=== PATIENT | male | born 1940 | race Caucasian/White ===

== ENCOUNTER 2016-12-07 15:17 | Observation (INO) | payer MEDICARE, OTHER ==
[2016-12-07] MEDS ORDERED: ASPIRIN CHEW 81 MG TABLET PO STA (15:34)
[2016-12-07] MEDS ORDERED: ASPIRIN CHEW 81 MG TABLET ONE (15:53)
[2016-12-07] MEDS ORDERED: SODIUM CHLORIDE 0.9% 1,000 ML IV ONE (16:13)
[2016-12-07] MEDS ORDERED: LIDOCAINE VISCOUS 2% 15 ML UDC MM STA (16:52)
[2016-12-07] MEDS ORDERED: SUCRALFATE 1 GM/10 ML UDC PO STA (16:52)
[2016-12-07] MEDS ORDERED: MAG HYDROX/AL HYDROX/SIMETH 30 ML UDC PO STA (16:52)
[2016-12-07] MEDS ORDERED: MAG HYDROX/AL HYDROX/SIMETH 30 ML UDC ONE (16:56)
[2016-12-07] MEDS ORDERED: SUCRALFATE 1 GM/10 ML UDC ONE (16:56)
[2016-12-07] MEDS ORDERED: LIDOCAINE VISCOUS 2% 15 ML UDC MM ONE (16:56)
[2016-12-07] MEDS ORDERED: GI COCKTAIL 120 ML BOTTLE PO PRN (18:31)
[2016-12-07] MEDS ORDERED: MORPHINE 2 MG/ML SYRINGE IVP PRN (18:35)
[2016-12-07] MEDS ORDERED: ACETAMINOPHEN 325 MG TABLET PO PRN (18:35)
[2016-12-07] MEDS ORDERED: SODIUM CHLORIDE FLUSH 0.9% 10 ML SYRINGE IVP PRN (18:35)
[2016-12-07] MEDS ORDERED: ONDANSETRON 4 MG/2 ML VIAL IVP PRN (18:35)
[2016-12-07] MEDS ORDERED: PANTOPRAZOLE 40 MG TABLET PO SCH (19:00)
[2016-12-07] MEDS: SODIUM CHLORIDE FLUSH 0.9% 10 ML SYRINGE IVP SCH (20:49)
[2016-12-07] MEDS: PANTOPRAZOLE 40 MG TABLET PO SCH (20:49)
[2016-12-07] MEDS: SODIUM CHLORIDE 0.9% 1,000 ML IV SCH (20:49)
[2016-12-08] MEDS: SODIUM CHLORIDE 0.9% 1,000 ML IV SCH (06:32)
[2016-12-08] MEDS: PANTOPRAZOLE 40 MG TABLET PO SCH (06:32)
[2016-12-08] MEDS: SODIUM CHLORIDE FLUSH 0.9% 10 ML SYRINGE IVP SCH (06:33)
[2016-12-08] MEDS ORDERED: PANTOPRAZOLE 40 MG TABLET PO SCH (07:00)
[2016-12-08] MEDS ORDERED: MULTIVITAMIN TABLET PO SCH (08:00)
[2016-12-08] MEDS ORDERED: ASPIRIN EC 81 MG TABLET PO SCH (09:00)
[2016-12-08] MEDS ORDERED: POLYETHYLENE GLYCOL 3350 17 GM PACKET PO SCH (09:00)
[2016-12-08] MEDS ORDERED: ESCITALOPRAM 10 MG TABLET PO SCH (09:00)
[2016-12-08] MEDS ORDERED: FINASTERIDE 5 MG TABLET PO SCH (09:00)
[2016-12-08] MEDS ORDERED: LISINOPRIL 5 MG TABLET PO SCH (09:00)
[2016-12-08] MEDS ORDERED: TAMSULOSIN 0.4 MG CAPSULE PO SCH (17:00)
== END 2016-12-08 13:59 | disposition home or self-care (01) ==
PROC: 0DB38ZX Excision of Lower Esophagus, Via Natural or Artificial Opening Endoscopic, Diagnostic (ICD-10-PCS; principal; 2016-12-08)
DX: K22.70 Barrett's esophagus without dysplasia (principal); K20.9 Esophagitis, unspecified; K21.9 Gastro-esophageal reflux disease without esophagitis; F10.20 Alcohol dependence, uncomplicated; E66.9 Obesity, unspecified; Z68.30 Body mass index [BMI] 30.0-30.9, adult; K44.9 Diaphragmatic hernia without obstruction or gangrene; D64.9 Anemia, unspecified; I15.9 Secondary hypertension, unspecified; N40.0 Benign prostatic hyperplasia without lower urinary tract symptoms; R06.83 Snoring; Z79.82 Long term (current) use of aspirin; Z87.891 Personal history of nicotine dependence
CPT/HCPCS: 36415; 43239; 71010; 80053; 80061; 81001; 83690; 83735; 83874; 84100; 84484; 85025; 93005; 93010; 93306; 99284; 99285; A9270; G0378

== ENCOUNTER 2017-01-15 07:34 | Outpatient (CLI) | payer MEDICARE, OTHER | END 2017-01-15 07:35 | disposition home or self-care (01) | DX: E55.9 Vitamin D deficiency, unspecified (principal) ==

== ENCOUNTER 2017-11-21 08:00 | Outpatient (CLI) | payer MEDICARE, OTHER ==
[2017-11-21 12:59] LABS: PSA FREE 0.74 ng/mL (0.16-2.81)
[2017-11-21 13:00] LABS: PSA TOTAL 3.97 ng/mL (0.000-2.000)
[2017-11-21 13:01] LABS: BASOPHILS # (AUTO) 0.2 10^3/uL (0.0-0.1); BASOPHILS % (AUTO) 1.5 %; EOSINOPHILS # (AUTO) 0.2 10^3/uL (0.0-0.7); EOSINOPHILS % (AUTO) 1.5 %; HGB - HEMOGLOBIN 12.4 g/dL (14.0-18.0); LYMPHOCYTES # (AUTO) 1.5 10^3/uL (1.5-3.5); LYMPHOCYTES % (AUTO) 12.6 %; MEAN CORPUSCULAR HEMOGLOBIN 30.6 pg (27.0-31.0); MEAN CORPUSCULAR HGB CONC 31.7 g/dL (32.0-36.0); MEAN CORPUSCULAR VOLUME 96.6 fL (80.0-94.0); MEAN PLATELET VOLUME 9.3 fL (7.4-11.4); MONOCYTES # (AUTO) 0.9 10^3/uL (0.0-1.0); MONOCYTES % (AUTO) 7.8 %; NEUTROPHILS # (AUTO) 9.3 10^3/uL (1.5-6.6); NEUTROPHILS % (AUTO) 76.6 %; PLT - PLATELET COUNT 354 10^3/uL (130-450); RED BLOOD COUNT 4.05 10^6/uL (4.70-6.10); RED CELL DISTRIBUTION WIDTH 14.4 % (12.0-15.0); WHITE BLOOD COUNT 12.1 x10^3/uL (4.8-10.8)
[2017-11-21 13:11] LABS: ALBUMIN 4.2 g/dL (3.2-5.5); ALBUMIN/GLOBULIN RATIO 1.3 (1.0-2.2); ALKALINE PHOSPHATASE 37 IU/L (42-121); ALT ALANINE AMINOTRANSFERASE 14 IU/L (10-60); AST ASPARTATE AMINOTRANSFERASE 20 IU/L (10-42); BILIRUBIN,TOTAL 0.4 mg/dL (0.2-1.0); BUN - BLOOD UREA NITROGEN 19 mg/dL (6-20); CALCIUM 8.7 mg/dL (8.5-10.3); CARBON DIOXIDE - CO2 25 mmol/L (21-32); CHLORIDE 104 mmol/L (101-111); CHOL/HDL RATIO 2.7 (<5.0); CHOLESTEROL 183 mg/dL; GFR - MDRD 73 (>89); GLUCOSE 96 mg/dL (70-100); HDL CHOLESTEROL 67 mg/dL; LDL CHOLESTEROL,CALCULATED 95 mg/dL; LDL/HDL RATIO 1.4 (<3.6); SODIUM 134 mmol/L (135-145); TOTAL PROTEIN 7.4 g/dL (6.7-8.2); VLDL CHOLESTEROL 21 mg/dL
== END 2017-11-21 08:01 | disposition home or self-care (01) ==
LOC: LAB.WCP 08:00
PROVIDERS: ATTEND Family Medicine
DX: Z13.220 Encounter for screening for lipoid disorders (principal); I10 Essential (primary) hypertension; E55.9 Vitamin D deficiency, unspecified; R97.20 Elevated prostate specific antigen [PSA]; K62.5 Hemorrhage of anus and rectum
CPT/HCPCS: 36415; 80053; 80061; 82306; 83721; 84154; 85025

== ENCOUNTER 2018-03-11 11:10 | Day surgery (SDC) | payer MEDICARE, OTHER ==
[~2018-03-11 11:10] MED LIST: LIDO GARGLE 30 ML BOTTLE ONE
[2018-03-11] MEDS ORDERED: LACTATED RINGERS 1,000 ML IV ONE (11:16)
[2018-03-11] MEDS ORDERED: MIDAZOLAM 2 MG/2 ML VIAL IVP ONE (11:47)
[2018-03-11] MEDS ORDERED: fentaNYL 250 MCG/5 ML VIAL IVP ONE (11:47)
[2018-03-11] MEDS ORDERED: BENZOCAINE/TETRACAINE/BUTAMBEN SPRAY 56 GM TOP ONE (12:00)
[2018-03-11] MEDS ORDERED: LIDO GARGLE 30 ML BOTTLE PO ONE (12:00)
[2018-03-11 13:19] VITALS: BP 106/86
== END 2018-03-11 11:11 | disposition home or self-care (01) ==
LOC: SDS 11:10
PROVIDERS: ATTEND Surgery
PROC: 0DB58ZX Excision of Esophagus, Via Natural or Artificial Opening Endoscopic, Diagnostic (ICD-10-PCS; principal; 2018-03-11 12:15)
DX: K22.70 Barrett's esophagus without dysplasia (principal); K44.9 Diaphragmatic hernia without obstruction or gangrene; I10 Essential (primary) hypertension; K21.9 Gastro-esophageal reflux disease without esophagitis; Z87.891 Personal history of nicotine dependence; Z79.82 Long term (current) use of aspirin
CPT/HCPCS: 43239; A9270; J3010; J7120; 88305

== ENCOUNTER 2018-04-20 11:20 | Emergency (ER) | payer MEDICARE, OTHER ==
[2018-04-20] MEDS ORDERED: HYDROcod/ACETAM 5/325 MG TABLET PO STA (12:17)
--- NOTE | 2018-04-20 12:17 | ED Physician Documentation ---
History of Present Illness - Stated complaint Stated Complaint: L SHOULDER/BACK PX-FALL - Chief complaint Chief Complaint: Back Pain - History obtained from History obtained from: Patient, Family - History of Present Illness Timing: How many days ago (4) Pain level max: 6 Pain level now: 3 - Additonal information Additional information: Patient is a 77-year-old male who tripped and fell off of his stairs 4 days ago at home. Landed on his left side, striking his head and left sided ribs. Now has pain in the ribs when he takes a deep breath or coughs. States does not feel short of breath. He also struck the left side of his head and had vomiting yesterday. Has had mild intermittent headaches since he fell. Has been taken aspirin at home for the headaches. No other apparent injuries. Pain is better with rest and worse with movement. Review of Systems Ten Systems: 10 systems reviewed and negative Constitutional: denies: Fever, Chills Ears: denies: Ear pain Nose: denies: Rhinorrhea / runny nose, Congestion Throat: denies: Sore throat Cardiac: denies: Chest pain / pressure Respiratory: denies: Cough GI: reports: Vomiting (Yesterday several times). denies: Abdominal Pain, Diarrhea Skin: denies: Rash Musculoskeletal: denies: Neck pain, Back pain Neurologic: denies: Focal weakness, Numbness, Confused, Altered mental status PD PAST MEDICAL HISTORY - Past Medical History Past Medical History: Yes Cardiovascular: Hypertension Respiratory: None Endocrine/Autoimmune: None GI: GERD : None HEENT: None Psych: None Musculoskeletal: None Derm: None - Past Surgical History General: Colonoscopy, EGD Ortho: Knee replacement HEENT: Cataracts - Present Medications Home Medications: Ambulatory Orders Medication Instructions Recorded Confirmed Lisinopril 10 mg PO DAILY 11/19/15 03/11/18 Omeprazole 20 mg PO QDAC 11/19/15 03/11/18 Aspirin [Aspirin EC] 81 mg PO DAILY 12/07/16 03/11/18 Escitalopram [Lexapro] 10 mg PO DAILY 12/07/16 03/11/18 Multivitamin [Multivitamins] 1 each PO DAILY 12/07/16 03/11/18 Tamsulosin [Flomax] 0.4 mg PO QDDINNER 12/07/16 03/11/18 Acetaminophen [Tylenol] 650 mg PO Q4HR PRN #0 tablet 12/08/16 Cholecalciferol (Vitamin D3) 5,000 unit PO DAILY #30 capsule 12/08/16 03/11/18 [Vitamin D3] Finasteride [Proscar] 5 mg PO DAILY tablet 12/08/16 03/11/18 [place]-3 Fatty Acids/Fish Oil 1 each PO DAILYWM #90 capsule 12/08/16 03/11/18 [[place]-3 Fish Oil 1,000 mg Sfgl] Pantoprazole [Protonix] 40 mg PO QDAC #30 tablet 12/08/16 03/11/18 Ubidecarenone/Vitamin E Mixed 1 each PO DAILY #30 capsule 12/08/16 03/11/18 [Kro48-Jsc E 200 mg-20 Unit Sfg] Hydrocodone/Acetaminophen 1 - 2 each PO Q6H PRN #9 tablet 04/20/18 [Hydrocodon-Acetaminophen 5-325] Meloxicam [Mobic] 7.5 mg PO BID PRN #20 tablet 04/20/18 - Allergies Allergies/Adverse Reactions: Allergies Allergy/AdvReac Type Severity Reaction Status Date / Time No Known Drug Allergies Allergy Verified 12/07/16 15:30 - Social History Does the pt smoke?: No Smoking Status: Never smoker Does the pt drink ETOH?: Yes Does the pt have substance abuse?: No PD ED PE NORMAL - Vitals Vital signs reviewed: Yes - General General: Alert and oriented X 3, No acute distress, Well developed/nourished - HEENT HEENT: PERRL, Ears normal, Moist mucous membranes, Pharynx benign, Other ( Bruising to the left zoroastrian area. No hematoma. Extraocular movements intact.) - Neck Neck: Supple, no meningeal sign, No bony TTP, Other (Full range of motion without pain) - Cardiac Cardiac: RRR, No murmur - Respiratory Respiratory: No respiratory distress, Clear bilaterally - Abdomen Abdomen: Soft, Non tender, Non distended - Back Back: No spinal TTP, Other (Tender palpation over the left-sided ribs, 2 through 6, posterior axillary line. No crepitus. No ecchymosis.) - Derm Derm: Warm and dry - Extremities Extremities: No deformity, No tenderness to palpate, Normal ROM s pain - Neuro Neuro: Alert and oriented X 3, wet chemistry analyst 2-12 intact, No motor deficit, No sensory deficit, Normal speech Eye Opening: Spontaneous Motor: Obeys Commands Verbal: Oriented GCS Score: 15 - Psych Psych: Normal mood, Normal affect Results - Vitals Vitals: Vital Signs - 24 hr 04/20/18 11:33 Temperature 36.5 C Heart Rate 70 Respiratory 16 Rate Blood Pressure 114/78 O2 Saturation 99 Oxygen O2 Source Room air - Rads (name of study) Ribs w/ cxr Radiology: Prelim report reviewed, EMP read contemporaneously, See rad report ( no acute abnormality.) head CT Radiology: Prelim report reviewed, EMP read contemporaneously, See rad report ( normal) PD MEDICAL DECISION MAKING - ED course Complexity details: reviewed results, re-evaluated patient, considered differential, d/w patient, d/w family ED course: Patient is a 77-year-old male who presents to the emergency department with a closed head injury as well as a left rib injury. No acute findings on x-ray. Pain well controlled. No hypoxia. No hemo-or pneumothorax. We will continue supportive care and follow-up with his doctor. Patient and family counseled regarding signs and symptoms for which I believe and urgent re-evaluation would be necessary. Patient with good understanding of and agreement to plan and is comfortable going home at this time This document was made in part using voice recognition software. While efforts are made to proofread this document, sound alike and grammatical errors may occur. - Sepsis Event Vital Signs: Vital Signs - 24 hr 04/20/18 11:33 Temperature 36.5 C Heart Rate 70 Respiratory 16 Rate Blood Pressure 114/78 O2 Saturation 99 Oxygen O2 Source Room air Departure - Departure Disposition: 01 Home, Self Care Clinical Impression: Head injury Qualifiers: Encounter type: initial encounter Qualified Code(s): S09.90XA - Unspecified injury of head, initial encounter Rib contusion Qualifiers: Encounter type: initial encounter Laterality: left Qualified Code(s): S20.212A - Contusion of left front wall of thorax, initial encounter Condition: Good Instructions: ED Head Injury Closed, ED Contusion Vs Minor Fx Rib Follow-Up: Marlon Del Angel MD [Primary Care Provider] - Within 1 week Prescriptions: Hydrocodone/Acetaminophen [Hydrocodon-Acetaminophen 5-325] 1 - 2 each PO Q6H PRN #9 tablet PRN Reason: pain Meloxicam [Mobic] 7.5 mg PO BID PRN #20 tablet PRN Reason: Pain Comments: Return if you worsen. You may continue to have pain for a week or more. Sometimes ribs can take several weeks to heal. Do not drink alcohol or drive while on narcotic pain medicine. Note that many narcotic pain relievers also contain tylenol/acetaminophen. Please ensure that your total dose of acetaminophen from all sources does not exceed 3 grams (3000mg) per day. You may constipated on this medication, take a stool softener such as "Colace" twice a day while you are on it. Also recommend a yliv-ttw-dfyrvrz laxative such as senna or MiraLAX any day that you do not have a bowel movement. If you received narcotic pain medication in the emergency department, do not drive or operate machinery for the next 24 hours.
--- NOTE | 2018-04-20 13:15 | CT Report ---
Procedure Date: 04/20/2018 Accession Number: [id number] / [id number] Procedure: CT - Head W/O CPT Code: FULL RESULT: EXAM: CT HEAD EXAM DATE: 04/20/2018 12:54 PM. CLINICAL HISTORY: Fall, head injury, vomiting. COMPARISON: None. TECHNIQUE: Multiaxial CT images were obtained from the foramen magnum to the vertex. Reformats: Coronal. IV contrast: None. In accordance with CT protocol optimization, one or more of the following dose reduction techniques were utilized for this exam: automated exposure control, adjustment of mA and/or KV based on patient size, or use of iterative reconstructive technique. FINDINGS: Parenchyma: No intraparenchymal hemorrhage. No evidence of mass, midline shift, or CT findings of infarction. Artis-white differentiation is distinct. Extraaxial Spaces: Normal for age. No subdural or epidural collections identified. Ventricles: Normal in size and position. Sinuses and Orbits: Imaged paranasal sinuses, orbits, and mastoids show no significant abnormality. Bones: No evidence of fracture or calvarial defect. Other: None. IMPRESSION: Ormal head CT. RADIA
--- NOTE | 2018-04-20 13:23 | XRAY Report ---
Procedure Date: 04/20/2018 Accession Number: [id number] / [id number] Procedure: XR - Ribs w/PA Chest LT CPT Code: FULL RESULT: EXAM: LEFT RIB RADIOGRAPHY EXAM DATE: 04/20/2018 01:00 PM. CLINICAL HISTORY: Acute pain due to trauma. COMPARISON: 12/07/2016. TECHNIQUE: 1 view of the chest and 2 views of the ribs. FINDINGS: Bones: Normal. No fracture or bone lesion. Lungs: No focal opacities. No pneumothorax. No pleural effusions. Mediastinum: Heart and mediastinal contours are unremarkable. Other: None. IMPRESSION: No rib fracture or deformity is identified. RADIA
[2018-04-20 13:46] VITALS: BP 113/68
== END 2018-04-20 13:45 | disposition home or self-care (01) ==
LOC: ED 11:20
DX: S09.90XA Unspecified injury of head, initial encounter (principal); S20.212A Contusion of left front wall of thorax, initial encounter; Z79.82 Long term (current) use of aspirin; W10.9XXA Fall (on) (from) unspecified stairs and steps, initial encounter; Y92.009 Unspecified place in unspecified non-institutional (private) residence as the place of occurrence of the external cause
CPT/HCPCS: 70450; 71101; 99283; A9270

== ENCOUNTER 2018-12-26 08:00 | Outpatient (CLI) | payer MEDICARE, OTHER ==
[2018-12-26 14:10] LABS: BASOPHILS % (AUTO) 1.1 %; EOSINOPHILS # (AUTO) 0.2 10^3/uL (0.0-0.7); EOSINOPHILS % (AUTO) 3.5 %; LYMPHOCYTES % (AUTO) 43.9 %; MEAN CORPUSCULAR HEMOGLOBIN 31.4 pg (27.0-31.0); MEAN CORPUSCULAR HGB CONC 32.6 g/dL (32.0-36.0); MEAN CORPUSCULAR VOLUME 96.3 fL (80.0-94.0); MEAN PLATELET VOLUME 8.4 fL (7.4-11.4); MONOCYTES # (AUTO) 0.5 10^3/uL (0.0-1.0); MONOCYTES % (AUTO) 10.6 %; NEUTROPHILS # (AUTO) 1.8 10^3/uL (1.5-6.6); NEUTROPHILS % (AUTO) 40.9 %; PLT - PLATELET COUNT 316 10^3/uL (130-450); RED BLOOD COUNT 4.14 10^6/uL (4.70-6.10); RED CELL DISTRIBUTION WIDTH 13.6 % (12.0-15.0); WHITE BLOOD COUNT 4.5 x10^3/uL (4.8-10.8)
[2018-12-26 15:09] LABS: ALBUMIN/GLOBULIN RATIO 1.2 (1.0-2.2); ALKALINE PHOSPHATASE 45 IU/L (42-121); ALT ALANINE AMINOTRANSFERASE 18 IU/L (10-60); AST ASPARTATE AMINOTRANSFERASE 21 IU/L (10-42); BILIRUBIN,TOTAL 0.8 mg/dL (0.2-1.0); BUN - BLOOD UREA NITROGEN 18 mg/dL (6-20); CALCIUM 8.9 mg/dL (8.5-10.3); CARBON DIOXIDE - CO2 25 mmol/L (21-32); CHLORIDE 99 mmol/L (101-111); CHOL/HDL RATIO 2.7 (<5.0); CHOLESTEROL 184 mg/dL; CREATININE 0.9 mg/dL (0.6-1.2); GFR - MDRD 82 (>89); GLUCOSE 82 mg/dL (70-100); HDL CHOLESTEROL 69 mg/dL; LDL CHOLESTEROL,CALCULATED 104 mg/dL; LDL/HDL RATIO 1.5 (<3.6); SODIUM 133 mmol/L (135-145); TOTAL PROTEIN 7.3 g/dL (6.7-8.2); VLDL CHOLESTEROL 11 mg/dL
== END 2018-12-26 23:59 | disposition home or self-care (01) ==
LOC: LAB.WCP 08:00
PROVIDERS: ATTEND Family Medicine
DX: Z00.00 Encounter for general adult medical examination without abnormal findings (principal)
CPT/HCPCS: 36415; 80053; 80061; 82306; 83721; 84153; 84443; 85025

== ENCOUNTER 2019-02-17 11:40 | Outpatient (CLI) | payer MEDICARE, OTHER | END 2019-02-17 11:41 | disposition critical access hospital (66) | LOC: EMS 11:40 | PROVIDERS: ATTEND Surgery | DX: R42 Dizziness and giddiness (principal) | CPT/HCPCS: A0425; A0427 ==

== ENCOUNTER 2019-02-17 12:03 | Emergency (ER) | payer MEDICARE, OTHER ==
[2019-02-17 12:42] LABS: BASOPHILS # (AUTO) 0.1 10^3/uL (0.0-0.1); BASOPHILS % (AUTO) 0.9 %; EOSINOPHILS # (AUTO) 0.2 10^3/uL (0.0-0.7); EOSINOPHILS % (AUTO) 2.9 %; HGB - HEMOGLOBIN 11.9 g/dL (14.0-18.0); LYMPHOCYTES # (AUTO) 1.8 10^3/uL (1.5-3.5); LYMPHOCYTES % (AUTO) 30.6 %; MEAN CORPUSCULAR HEMOGLOBIN 31.4 pg (27.0-31.0); MEAN CORPUSCULAR HGB CONC 33.4 g/dL (32.0-36.0); MEAN PLATELET VOLUME 7.7 fL (7.4-11.4); MONOCYTES # (AUTO) 0.7 10^3/uL (0.0-1.0); MONOCYTES % (AUTO) 11.3 %; NEUTROPHILS # (AUTO) 3.3 10^3/uL (1.5-6.6); NEUTROPHILS % (AUTO) 54.3 %; PLT - PLATELET COUNT 285 10^3/uL (130-450); RED BLOOD COUNT 3.79 10^6/uL (4.70-6.10); RED CELL DISTRIBUTION WIDTH 14.1 % (12.0-15.0)
--- NOTE | 2019-02-17 12:56 | XRAY Report ---
Reason: cp Procedure Date: 02/17/2019 Accession Number: [id number] / [id number] Procedure: XR - Chest 1 View X-Ray CPT Code: 49314 FULL RESULT: EXAM: CHEST RADIOGRAPHY EXAM DATE: 02/17/2019 12:33 PM. CLINICAL HISTORY: Cp. COMPARISON: RIBS W/PA CHEST LT 04/20/2018 12:46 PM. TECHNIQUE: 1 view. FINDINGS: Lungs/Pleura: Mildly low lung volumes. No focal lung consolidation. No large effusion. No pneumothorax. Mediastinum: Cardiac silhouette size appears unremarkable. Mild vascular calcification. Other: None. IMPRESSION: Mildly low lung volumes. No focal lung consolidation or large effusions. RADIA
[2019-02-17 12:57] LABS: ALBUMIN 3.4 g/dL (3.2-5.5); ALBUMIN/GLOBULIN RATIO 1.3 (1.0-2.2); BILIRUBIN,TOTAL 0.6 mg/dL (0.2-1.0); CALCIUM 8.5 mg/dL (8.5-10.3)
--- NOTE | 2019-02-17 13:12 | ED Physician Documentation ---
History of Present Illness - Stated complaint Stated Complaint: DIZZINESS - Chief complaint Chief Complaint: General - History obtained from History obtained from: Patient, EMS - History of Present Illness Timing: Today (After doing some outdoor labor this morning felt dizzy starting after going from sitting to standing. BIBA. Describes it as lightheaded. It was bad enough that he felt he could not stand up d/t same.) Review of Systems GI: reports: Nausea, Vomiting (chronic) PD PAST MEDICAL HISTORY - Past Medical History Past Medical History: Yes Cardiovascular: Hypertension Respiratory: None Endocrine/Autoimmune: None GI: GERD : None HEENT: None Psych: None Musculoskeletal: None Derm: None - Past Surgical History Past Surgical History: Yes General: Colonoscopy, EGD Ortho: Knee replacement HEENT: Cataracts - Present Medications Home Medications: Ambulatory Orders Medication Instructions Recorded Confirmed Lisinopril 10 mg PO DAILY 11/19/15 03/11/18 Omeprazole 20 mg PO QDAC 11/19/15 03/11/18 Aspirin [Aspirin EC] 81 mg PO DAILY 12/07/16 03/11/18 Escitalopram [Lexapro] 10 mg PO DAILY 12/07/16 03/11/18 Multivitamin [Multivitamins] 1 each PO DAILY 12/07/16 03/11/18 Tamsulosin [Flomax] 0.4 mg PO QDDINNER 12/07/16 03/11/18 Acetaminophen [Tylenol] 650 mg PO Q4HR PRN #0 tablet 12/08/16 Cholecalciferol (Vitamin D3) 5,000 unit PO DAILY #30 capsule 12/08/16 03/11/18 [Vitamin D3] Finasteride [Proscar] 5 mg PO DAILY tablet 12/08/16 03/11/18 [place]-3 Fatty Acids/Fish Oil 1 each PO DAILYWM #90 capsule 12/08/16 03/11/18 [[place]-3 Fish Oil 1,000 mg Sfgl] Pantoprazole [Protonix] 40 mg PO QDAC #30 tablet 12/08/16 03/11/18 Ubidecarenone/Vitamin E Mixed 1 each PO DAILY #30 capsule 12/08/16 03/11/18 [Mcs29-Cva E 200 mg-20 Unit Sfg] Hydrocodone/Acetaminophen 1 - 2 each PO Q6H PRN #9 tablet 04/20/18 [Hydrocodon-Acetaminophen 5-325] Meloxicam [Mobic] 7.5 mg PO BID PRN #20 tablet 04/20/18 - Allergies Allergies/Adverse Reactions: Allergies Allergy/AdvReac Type Severity Reaction Status Date / Time No Known Drug Allergies Allergy Verified 02/17/19 12:08 - Social History Does the pt smoke?: Yes Smoking Status: Former smoker Does the pt drink ETOH?: Yes ETOH Use: Beer Does the pt have substance abuse?: No - Family History Family history: reports: Non contributory PD ED PE NORMAL - Vitals Vital signs reviewed: Yes - General General: Alert and oriented X 3, No acute distress - HEENT HEENT: PERRL, EOMI - Neck Neck: Supple, no meningeal sign, No bony TTP - Cardiac Cardiac: RRR, No murmur, Other (Somewhat muffled heart sounds, bedside ultrasound demonstrates no pericardial effusion.) - Respiratory Respiratory: No respiratory distress, Clear bilaterally - Abdomen Abdomen: Soft, Non tender - Back Back: No CVA TTP, No spinal TTP - Derm Derm: Normal color, Warm and dry - Extremities Extremities: No edema, No calf tenderness / cord - Neuro Neuro: Alert and oriented X 3, Normal speech - Psych Psych: Normal mood, Normal affect Results - Vitals Vitals: Vital Signs - 24 hr 02/17/19 12:08 Temperature 36.1 C L Heart Rate 87 Respiratory 18 Rate Blood Pressure 121/75 O2 Saturation 98 Oxygen O2 Source Room air - EKG (time done) 1208 Rate: Rate (enter#) (66) Rhythm: NSR [place]: Normal Intervals: RBBB QRS: Normal Ischemia: Normal ST segments Computer interpretation: Agree with computer - Labs Labs: Laboratory Tests 02/17/19 02/17/19 02/17/19 12:35 12:35 12:35 WBC 6.0 RBC 3.79 L Hgb 11.9 L Hct 35.6 L MCV 94.0 MCH 31.4 H MCHC 33.4 RDW 14.1 Plt Count 285 MPV 7.7 Neut # (Auto) 3.3 Lymph # (Auto) 1.8 [place] # (Auto) 0.7 Eos # (Auto) 0.2 Baso # (Auto) 0.1 Absolute Nucleated RBC 0.00 Nucleated RBC % 0.0 Sodium 135 Potassium 4.0 Chloride 104 Carbon Dioxide 24 Anion Gap 7.0 BUN 17 Creatinine 1.0 Estimated GFR (MDRD) 73 L Glucose 102 H Calcium 8.5 Total Bilirubin 0.6 AST 21 ALT 16 Alkaline Phosphatase 37 L Troponin I < 0.04 Total Protein 6.0 L Albumin 3.4 Globulin 2.6 Albumin/Globulin Ratio 1.3 Lipase 37 - Rads (name of study) 1v chest Radiology: EMP read contemporaneously (low volumes, NAD) PD MEDICAL DECISION MAKING - ED course ED course: 78-year-old gentleman after an episode of dizziness this morning. Further history suggests that it is kind of a combination of disequilibrium and orthostasis confirmed with positive orthostatic vital signs here. After IV fluids he was feeling much better. His neurologic examination is normal and he ambulated in the hernadez without difficulty or disequilibrium. Departure - Departure Disposition: 01 Home, Self Care Clinical Impression: Dizziness, Dehydration Condition: Good Instructions: ED Dehydration, ED Dizziness UKO Comments: Call your doctor to arrange a follow-up appointment, make the next available appointment. In the interim, return anytime if worse or if new symptoms develop.
[2019-02-17] MEDS ORDERED: LACTATED RINGERS 1,000 ML IV STA (13:28)
[2019-02-17 14:18] VITALS: BP 143/85
== END 2019-02-17 15:03 | disposition home or self-care (01) ==
LOC: EDUNIT# → ED 12:03
DX: R42 Dizziness and giddiness (principal); E86.0 Dehydration; I10 Essential (primary) hypertension; I45.10 Unspecified right bundle-branch block; Z87.891 Personal history of nicotine dependence
CPT/HCPCS: 36415; 71045; 80053; 83690; 84484; 85025; 93005; 96360; 99283; J7120

== ENCOUNTER 2019-05-19 16:24 | Emergency (ER) | payer MEDICARE, OTHER ==
[2019-05-19 16:58] LABS: BASOPHILS # (AUTO) 0.1 10^3/uL (0.0-0.1); BASOPHILS % (AUTO) 0.9 %; EOSINOPHILS # (AUTO) 0.2 10^3/uL (0.0-0.7); HGB - HEMOGLOBIN 12.8 g/dL (14.0-18.0); LYMPHOCYTES # (AUTO) 2.2 10^3/uL (1.5-3.5); LYMPHOCYTES % (AUTO) 29.5 %; MEAN CORPUSCULAR HEMOGLOBIN 31.3 pg (27.0-31.0); MEAN CORPUSCULAR HGB CONC 33.5 g/dL (32.0-36.0); MEAN CORPUSCULAR VOLUME 93.4 fL (80.0-94.0); MEAN PLATELET VOLUME 10.2 fL (7.4-11.4); MONOCYTES # (AUTO) 0.7 10^3/uL (0.0-1.0); MONOCYTES % (AUTO) 8.7 %; NEUTROPHILS # (AUTO) 4.4 10^3/uL (1.5-6.6); NEUTROPHILS % (AUTO) 58.5 %; PLT - PLATELET COUNT 304 10^3/uL (130-450); RED BLOOD COUNT 4.09 10^6/uL (4.70-6.10); RED CELL DISTRIBUTION WIDTH 13.2 % (12.0-15.0); WHITE BLOOD COUNT 7.6 x10^3/uL (4.8-10.8)
[2019-05-19 17:09] LABS: ALBUMIN/GLOBULIN RATIO 1.3 (1.0-2.2); BILIRUBIN,TOTAL 0.6 mg/dL (0.2-1.0); CALCIUM 9.2 mg/dL (8.5-10.3); CREATININE 1.3 mg/dL (0.6-1.2); TOTAL PROTEIN 7.1 g/dL (6.7-8.2)
--- NOTE | 2019-05-19 17:12 | ED Physician Documentation ---
History of Present Illness - Stated complaint Stated Complaint: LOW BLOOD PRESSURE, HIGH HEART RATE - Chief complaint Chief Complaint: Cardiac - History obtained from History obtained from: Patient - History of Present Illness Timing: Today Pain level max: 0 Pain level now: 0 - Additonal information Additional information: states felt dizzy while driving today. States BP was 130/80, then 30 mins later was 80/40. No vomiting. No headches. no chest pain. no palpitations. [place] lightheaded. No similar symptoms in the past. no neck or back pain, Review of Systems Constitutional: denies: Fever, Chills GI: denies: Vomiting, Diarrhea Skin: denies: Rash Musculoskeletal: denies: Neck pain, Back pain Neurologic: denies: Headache PD PAST MEDICAL HISTORY - Past Medical History Cardiovascular: Hypertension Respiratory: None Endocrine/Autoimmune: None GI: GERD : None HEENT: None Psych: None Musculoskeletal: None Derm: None - Past Surgical History Past Surgical History: Yes General: Colonoscopy, EGD Ortho: Knee replacement HEENT: Cataracts - Present Medications Home Medications: Ambulatory Orders Medication Instructions Recorded Confirmed Lisinopril 10 mg PO DAILY 11/19/15 03/11/18 Omeprazole 20 mg PO QDAC 11/19/15 03/11/18 Aspirin [Aspirin EC] 81 mg PO DAILY 12/07/16 03/11/18 Escitalopram [Lexapro] 10 mg PO DAILY 12/07/16 03/11/18 Multivitamin [Multivitamins] 1 each PO DAILY 12/07/16 03/11/18 Tamsulosin [Flomax] 0.4 mg PO QDDINNER 12/07/16 03/11/18 Acetaminophen [Tylenol] 650 mg PO Q4HR PRN #0 tablet 12/08/16 Cholecalciferol (Vitamin D3) 5,000 unit PO DAILY #30 capsule 12/08/16 03/11/18 [Vitamin D3] Finasteride [Proscar] 5 mg PO DAILY tablet 12/08/16 03/11/18 [place]-3 Fatty Acids/Fish Oil 1 each PO DAILYWM #90 capsule 12/08/16 03/11/18 [[place]-3 Fish Oil 1,000 mg Sfgl] Pantoprazole [Protonix] 40 mg PO QDAC #30 tablet 12/08/16 03/11/18 Ubidecarenone/Vitamin E Mixed 1 each PO DAILY #30 capsule 12/08/16 03/11/18 [Kuj95-Orx E 200 mg-20 Unit Sfg] Hydrocodone/Acetaminophen 1 - 2 each PO Q6H PRN #9 tablet 04/20/18 [Hydrocodon-Acetaminophen 5-325] Meloxicam [Mobic] 7.5 mg PO BID PRN #20 tablet 04/20/18 - Allergies Allergies/Adverse Reactions: Allergies Allergy/AdvReac Type Severity Reaction Status Date / Time No Known Drug Allergies Allergy Verified 05/19/19 16:40 - Social History Does the pt smoke?: Yes Smoking Status: Former smoker Does the pt drink ETOH?: Yes Does the pt have substance abuse?: No PD ED PE NORMAL - Vitals Vital signs reviewed: Yes - General General: Alert and oriented X 3, No acute distress - HEENT HEENT: Moist mucous membranes - Neck Neck: Supple, no meningeal sign - Cardiac Cardiac: RRR, No murmur, Strong equal pulses - Respiratory Respiratory: No respiratory distress, Clear bilaterally - Abdomen Abdomen: Soft, Non tender, Non distended - Back Back: No CVA TTP, No spinal TTP - Derm Derm: Warm and dry, No rash - Neuro Neuro: Alert and oriented X 3 - Psych Psych: Normal mood, Normal affect Results - Vitals Vitals: Vital Signs - 24 hr 05/19/19 05/19/19 05/19/19 16:30 17:00 18:46 Temperature 36.0 C L Heart Rate 80 60 Heart Rate [ 76 Sitting] Heart Rate [ 76 Standing] Heart Rate [ 70 Supine] Respiratory 12 17 Rate Blood Pressure 94/60 94/61 Blood Pressure 116/62 [Sitting] Blood Pressure 109/56 L [Standing] Blood Pressure 107/65 [Supine] O2 Saturation 96 99 05/19/19 20:01 Temperature 36.7 C Heart Rate 77 Heart Rate [ Sitting] Heart Rate [ Standing] Heart Rate [ Supine] Respiratory 17 Rate Blood Pressure 113/77 Blood Pressure [Sitting] Blood Pressure [Standing] Blood Pressure [Supine] O2 Saturation 99 Oxygen O2 Source Room air - EKG (time done) 1631 Rate: Rate (enter#) (85) Rhythm: NSR Intervals: Normal [place], RBBB Ischemia: Normal ST segments - Labs Labs: Laboratory Tests 05/19/19 05/19/19 05/19/19 16:45 16:45 16:45 WBC 7.6 RBC 4.09 L Hgb 12.8 L Hct 38.2 L MCV 93.4 MCH 31.3 H MCHC 33.5 RDW 13.2 Plt Count 304 MPV 10.2 Neut # (Auto) 4.4 Lymph # (Auto) 2.2 [place] # (Auto) 0.7 Eos # (Auto) 0.2 Baso # (Auto) 0.1 Absolute Nucleated RBC 0.00 Nucleated RBC % 0.0 Sodium 136 Potassium 3.8 Chloride 102 Carbon Dioxide 21 Anion Gap 13.0 BUN 18 Creatinine 1.3 H Estimated GFR (MDRD) 54 L Glucose 110 H Calcium 9.2 Total Bilirubin 0.6 AST 20 ALT 17 Alkaline Phosphatase 51 Troponin I < 0.04 Total Protein 7.1 Albumin 4.0 Globulin 3.1 Albumin/Globulin Ratio 1.3 Lipase 44 Urine Color Urine Clarity Urine pH Ur Specific [place] Urine Protein Urine Glucose (UA) Urine Ketones Urine Occult Blood Urine Nitrite Urine Bilirubin Urine Urobilinogen Ur Leukocyte Esterase Urine RBC Urine WBC Ur Squamous Epith Cells Urine Bacteria Urine Casts Ur Microscopic Review Urine Culture Comments 05/19/19 18:35 WBC RBC Hgb Hct MCV MCH MCHC RDW Plt Count MPV Neut # (Auto) Lymph # (Auto) [place] # (Auto) Eos # (Auto) Baso # (Auto) Absolute Nucleated RBC Nucleated RBC % Sodium Potassium Chloride Carbon Dioxide Anion Gap BUN Creatinine Estimated GFR (MDRD) Glucose Calcium Total Bilirubin AST ALT Alkaline Phosphatase Troponin I Total Protein Albumin Globulin Albumin/Globulin Ratio Lipase Urine Color DARK YELLOW Urine Clarity CLEAR Urine pH 5.5 Ur Specific [place] 1.025 Urine Protein 30 H Urine Glucose (UA) NEGATIVE Urine Ketones 15 H Urine Occult Blood NEGATIVE Urine Nitrite NEGATIVE Urine Bilirubin NEGATIVE Urine Urobilinogen 0.2 (NORMAL) Ur Leukocyte Esterase TRACE H Urine RBC 0-5 Urine WBC 0-3 Ur Squamous Epith Cells NONE SEEN Urine Bacteria None Seen Urine Casts 26-50 Hyaline Casts Ur Microscopic Review INDICATED Urine Culture Comments INDICATED - Rads (name of study) cxr Radiology: Prelim report reviewed, EMP read contemporaneously, See rad report (no acute disease) PD MEDICAL DECISION MAKING - ED course Complexity details: reviewed old records, reviewed results, re-evaluated patient, considered differential, d/w patient, d/w family ED course: Patient with positive orthostatics. Feels much better after IV fluids. Symptoms resolved. No longer orthostatic. Ambulating without difficulty. We will follow-up with his doctor for further care. Patient counseled regarding signs and symptoms for which I believe and urgent re-evaluation would be necessary. Patient with good understanding of and agreement to plan and is comfortable going home at this time This document was made in part using voice recognition software. While efforts are made to proofread this document, sound alike and grammatical errors may occur. Departure - Departure Disposition: 01 Home, Self Care Clinical Impression: Dehydration Condition: Good Instructions: ED Dehydration Follow-Up: MICH LEIVA MD [Primary Care Provider] - Within 1 week Comments: Drink plenty of water at home. Return if you worsen. You can also try drinking and oral rehydration solution. You can find recipes for this online. Gatorade works as well. Discharge Date/Time: 05/19/19 20:01
[2019-05-19] MEDS ORDERED: SODIUM CHLORIDE 0.9% 1,000 ML IV ONE ×3 (17:13→18:35)
--- NOTE | 2019-05-19 17:17 | XRAY Report ---
Reason: dizziness/palpitations Procedure Date: 05/19/2019 Accession Number: [id number] / [id number] Procedure: XR - Chest 1 View X-Ray CPT Code: 08950 FULL RESULT: EXAM: CHEST RADIOGRAPHY EXAM DATE: 05/19/2019 05:00 PM. CLINICAL HISTORY: Dizziness. Palpitations. COMPARISON: CHEST 1 VIEW 02/17/2019 12:20 PM RIBS W/PA CHEST LT 04/20/2018 12:46 PM. TECHNIQUE: 1 view. FINDINGS: Lungs/Pleura: No focal opacities evident. No pleural effusion. No pneumothorax. Mediastinum: Within exam limitations, the cardiomediastinal contour is normal. Prominent cardiophrenic fat pads noted. Other: None. IMPRESSION: Normal single view chest. RADIA
[2019-05-19 18:51] LABS: GLUCOSE, URINE (UA) NEGATIVE (NEGATIVE); KETONES,URINE (UA) 15 mg/dL (NEGATIVE); LEUKOCYTE ESTERASE, URINE TRACE (NEGATIVE); NITRITE,URINE NEGATIVE (NEGATIVE); OCCULT BLOOD,URINE NEGATIVE (NEGATIVE); PH,URINE 5.5 PH (5.0-7.5); PROTEIN,URINE 30 mg/dL (NEGATIVE); UROBILINOGEN,URINE 0.2 (NORMAL) E.U./dL (NORMAL)
[2019-05-19 18:56] LABS: BILIRUBIN,URINE NEGATIVE (NEGATIVE); CLARITY,URINE CLEAR (CLEAR); ICTOTEST,URINE NEGATIVE
[2019-05-19 19:09] LABS: BACTERIA,URINE None Seen /HPF (None Seen); CASTS, URINE 26-50 Hyaline Casts /LPF; RBC,URINE 0-5 /HPF (0-5); SQUAMOUS EPITHELIAL CELL,UR NONE SEEN (<= Few)
[2019-05-19 20:02] VITALS: BP 113/77
== END 2019-05-19 20:01 | disposition home or self-care (01) ==
LOC: ED 16:24
DX: E86.0 Dehydration (principal); I45.10 Unspecified right bundle-branch block; I10 Essential (primary) hypertension; Z87.891 Personal history of nicotine dependence; Z79.82 Long term (current) use of aspirin
CPT/HCPCS: 36415; 71045; 80053; 81001; 81003; 83690; 84484; 85025; 87086; 93005; 96360; 99283

== ENCOUNTER 2019-11-17 09:00 | Outpatient (CLI) | payer MEDICARE, OTHER ==
[2019-11-17 19:11] LABS: H. PYLORIS ANTIGEN STL NEGATIVE (Negative)
== END 2019-11-17 23:59 | disposition home or self-care (01) ==
LOC: LAB.R 09:00
PROVIDERS: ATTEND Family Medicine
DX: K52.9 Noninfective gastroenteritis and colitis, unspecified (principal)
CPT/HCPCS: 81599; 83630; 87045; 87046; 87177; 87209; 87329; 87338; 87493

== ENCOUNTER 2019-12-25 08:30 | Outpatient (CLI) | payer MEDICARE, OTHER ==
[2019-12-25 12:10] LABS: BASOPHILS # (AUTO) 0.1 10^3/uL (0.0-0.1); BASOPHILS % (AUTO) 1.5 %; EOSINOPHILS # (AUTO) 0.2 10^3/uL (0.0-0.7); EOSINOPHILS % (AUTO) 4.1 %; HGB - HEMOGLOBIN 11.6 g/dL (14.0-18.0); LYMPHOCYTES # (AUTO) 2.1 10^3/uL (1.5-3.5); MEAN CORPUSCULAR HEMOGLOBIN 30.6 pg (27.0-31.0); MEAN CORPUSCULAR HGB CONC 32.7 g/dL (32.0-36.0); MEAN CORPUSCULAR VOLUME 93.7 fL (80.0-94.0); MEAN PLATELET VOLUME 10.8 fL (7.4-11.4); MONOCYTES # (AUTO) 0.6 10^3/uL (0.0-1.0); MONOCYTES % (AUTO) 10.7 %; NEUTROPHILS # (AUTO) 2.4 10^3/uL (1.5-6.6); NEUTROPHILS % (AUTO) 44.1 %; PLT - PLATELET COUNT 329 10^3/uL (130-450); RED BLOOD COUNT 3.79 10^6/uL (4.70-6.10); RED CELL DISTRIBUTION WIDTH 14.4 % (12.0-15.0); WHITE BLOOD COUNT 5.4 x10^3/uL (4.8-10.8)
[2019-12-25 12:37] LABS: ALBUMIN 4.2 g/dL (3.2-5.5); ALBUMIN/GLOBULIN RATIO 1.4 (1.0-2.2); ALKALINE PHOSPHATASE 42 IU/L (42-121); ALT ALANINE AMINOTRANSFERASE 20 IU/L (10-60); AST ASPARTATE AMINOTRANSFERASE 25 IU/L (10-42); BILIRUBIN,TOTAL 0.5 mg/dL (0.2-1.0); BUN - BLOOD UREA NITROGEN 19 mg/dL (6-20); CALCIUM 9.1 mg/dL (8.5-10.3); CARBON DIOXIDE - CO2 26 mmol/L (21-32); CHLORIDE 102 mmol/L (101-111); CHOL/HDL RATIO 2.5 (<5.0); CHOLESTEROL 202 mg/dL; GFR - MDRD 72 (>89); GLUCOSE 93 mg/dL (70-100); HDL CHOLESTEROL 81 mg/dL; SODIUM 134 mmol/L (135-145); TOTAL PROTEIN 7.2 g/dL (6.7-8.2)
== END 2019-12-25 23:59 | disposition home or self-care (01) ==
LOC: LAB.N 08:30
PROVIDERS: ATTEND Family Medicine
DX: I10 Essential (primary) hypertension (principal); E55.9 Vitamin D deficiency, unspecified; Z12.5 Encounter for screening for malignant neoplasm of prostate
CPT/HCPCS: 36415; 80053; 80061; 82306; 84443; 85025; G0103; 83721; 84153

== ENCOUNTER 2020-01-08 09:23 | Outpatient (CLI) | payer MEDICARE, OTHER ==
[2020-01-08 12:19] LABS: ABSOLUTE RETICS # AUTO 0.051 10^6/uL (0.020-0.110); BASOPHILS # (AUTO) 0.1 10^3/uL (0.0-0.1); BASOPHILS % (AUTO) 1.5 %; EOSINOPHILS # (AUTO) 0.5 10^3/uL (0.0-0.7); EOSINOPHILS % (AUTO) 6.8 %; HGB - HEMOGLOBIN 11.9 g/dL (14.0-18.0); LYMPHOCYTES # (AUTO) 1.7 10^3/uL (1.5-3.5); LYMPHOCYTES % (AUTO) 23.6 %; MEAN CORPUSCULAR HEMOGLOBIN 31.2 pg (27.0-31.0); MEAN CORPUSCULAR HGB CONC 33.6 g/dL (32.0-36.0); MEAN CORPUSCULAR VOLUME 92.7 fL (80.0-94.0); MEAN PLATELET VOLUME 10.3 fL (7.4-11.4); MONOCYTES # (AUTO) 0.8 10^3/uL (0.0-1.0); NEUTROPHILS # (AUTO) 4.1 10^3/uL (1.5-6.6); NEUTROPHILS % (AUTO) 56.8 %; PLT - PLATELET COUNT 309 10^3/uL (130-450); RED BLOOD COUNT 3.82 10^6/uL (4.70-6.10); RED CELL DISTRIBUTION WIDTH 14.4 % (12.0-15.0); WHITE BLOOD COUNT 7.2 x10^3/uL (4.8-10.8)
[2020-01-08 12:32] LABS: % IRON SATURATION 14 % (20-50); IRON 63 ug/dL (45-182); TOTAL IRON BINDING CAPACITY 441 ug/dL (250-450); TRANSFERRIN 315 mg/dL (180-329)
[2020-01-08 12:44] LABS: FERRITIN 18.3 ng/mL (23.9-336.2)
[2020-01-08 12:48] LABS: FOLATE 20.81 ng/mL (5.90 - >24.8)
== END 2020-01-08 09:24 | disposition home or self-care (01) ==
LOC: LAB.N 09:23
PROVIDERS: ATTEND Family Medicine
DX: D64.9 Anemia, unspecified (principal)
CPT/HCPCS: 36415; 82607; 82728; 82746; 83540; 84466; 85025; 85045

== ENCOUNTER 2020-12-29 13:51 | Outpatient (CLI) | payer MEDICARE, OTHER | END 2020-12-29 13:52 | disposition critical access hospital (66) | LOC: EMS 13:51 | PROVIDERS: ATTEND Registered Nurse | DX: M79.622 Pain in left upper arm (principal); R20.2 Paresthesia of skin | CPT/HCPCS: A0425; A0429 ==

== ENCOUNTER 2020-12-29 14:10 | Observation (INO) | payer MEDICARE, OTHER ==
--- NOTE | 2020-12-29 14:23 | ED Physician Documentation ---
History of Present Illness - Stated complaint Stated Complaint: L SIDE CHEST PX - Additonal information Additional information: 80-year-old male presents the emergency department for evaluation of acute onset left-sided chest pain. He reports that at approximately noon he was walking at [employer] when he felt a sharp pain on his left chest that radiated to his left arm. Denies associated nausea vomiting or SOB. He then presented to the [facility] station for further evaluation and was transported to the emergency department. This gentleman denies any previous history of myocardial infarction though he does have a history of hypertension. Non-smoker. EKG here shows nonischemic right bundle branch unchanged from 2019. Review of Systems Constitutional: denies: Fever, Chills Eyes: reports: Reviewed and negative Ears: reports: Reviewed and negative Nose: reports: Reviewed and negative Throat: reports: Reviewed and negative Cardiac: reports: Chest pain / pressure. denies: Palpitations, Pedal edema, Calf pain Respiratory: denies: Dyspnea, Cough GI: denies: Abdominal Pain, Abdominal Swelling, Nausea, Vomiting : denies: Dysuria Skin: denies: Rash, Lesions Musculoskeletal: denies: Neck pain, Back pain Neurologic: reports: Reviewed and negative PD PAST MEDICAL HISTORY - Past Medical History Cardiovascular: Hypertension Respiratory: None Endocrine/Autoimmune: None GI: GERD : None HEENT: None Psych: None Musculoskeletal: None Derm: None - Past Surgical History Past Surgical History: Yes General: Colonoscopy, EGD Ortho: Knee replacement HEENT: Cataracts - Present Medications Home Medications: Ambulatory Orders Medication Instructions Recorded Confirmed Omeprazole 20 mg PO QDAC 11/19/15 03/11/18 lisinopriL [Lisinopril] 10 mg PO DAILY 11/19/15 03/11/18 Aspirin [Aspirin EC] 81 mg PO DAILY 12/07/16 03/11/18 Escitalopram [Lexapro] 10 mg PO DAILY 12/07/16 03/11/18 Multivitamin [Multivitamins] 1 each PO DAILY 12/07/16 03/11/18 Tamsulosin [Flomax] 0.4 mg PO QDDINNER 12/07/16 03/11/18 Acetaminophen [Tylenol] 650 mg PO Q4HR PRN #0 tablet 12/08/16 Cholecalciferol (Vitamin D3) 5,000 unit PO DAILY #30 capsule 12/08/16 03/11/18 [Vitamin D3] Finasteride [Proscar] 5 mg PO DAILY tablet 12/08/16 03/11/18 [place]-3 Fatty Acids/Fish Oil 1 each PO DAILYWM #90 capsule 12/08/16 03/11/18 [[place]-3 Fish Oil 1,000 mg Sfgl] Pantoprazole [Protonix] 40 mg PO QDAC #30 tablet 12/08/16 03/11/18 Ubidecarenone/Vitamin E Mixed 1 each PO DAILY #30 capsule 12/08/16 03/11/18 [[id number] E 200 mg-20 Unit Sfg] Hydrocodone/Acetaminophen 1 - 2 each PO Q6H PRN #9 tablet 04/20/18 [Hydrocodon-Acetaminophen 5-325] Meloxicam [Mobic] 7.5 mg PO BID PRN #20 tablet 04/20/18 - Allergies Allergies/Adverse Reactions: Allergies Allergy/AdvReac Type Severity Reaction Status Date / Time No Known Drug Allergies Allergy Verified 12/29/20 14:23 - Social History Does the pt smoke?: Yes Smoking Status: Former smoker Does the pt drink ETOH?: Yes Does the pt have substance abuse?: No PD ED PE NORMAL - General General: Alert and oriented X 3, No acute distress - Cardiac Cardiac: RRR, No murmur - Respiratory Respiratory: No respiratory distress, Clear bilaterally - Abdomen Abdomen: Normal bowel sounds, Soft, Non tender - Derm Derm: Normal color, Warm and dry, No rash - Extremities Extremities: No deformity, No tenderness to palpate, Normal ROM s pain - Neuro Neuro: Alert and oriented X 3, 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, No motor deficit, No sensory deficit Eye Opening: Spontaneous Motor: Obeys Commands Verbal: Oriented GCS Score: 15 Results - Vitals Vitals: Vital Signs - 24 hr 12/29/20 12/29/20 14:23 14:29 Temperature 36.5 C 36.5 C Heart Rate 68 68 Respiratory 16 16 Rate Blood Pressure 124/83 H 124/83 H O2 Saturation 97 97 Oxygen O2 Source Room air - EKG (time done) 1412 Rate: Rate (enter#) (68) Rhythm: NSR Intervals: RBBB QRS: Normal Ischemia: Normal ST segments Compare to prior EKG: Unchanged from prior EKG Computer interpretation: Agree with computer - Labs Labs: Laboratory Tests 12/29/20 12/29/20 12/29/20 14:43 14:43 14:43 WBC 6.8 RBC 3.74 L Hgb 11.8 L Hct 35.3 L MCV 94.4 H MCH 31.6 H MCHC 33.4 RDW 12.9 Plt Count 276 MPV 9.7 Neut # (Auto) 2.8 Lymph # (Auto) 2.9 [place] # (Auto) 0.7 Eos # (Auto) 0.2 Baso # (Auto) 0.1 Absolute Nucleated RBC 0.00 Nucleated RBC % 0.0 Sodium 136 Potassium 4.0 Chloride 103 Carbon Dioxide 22 Anion Gap 11.0 BUN 17 Creatinine 0.8 Estimated GFR (MDRD) 93 Glucose 82 Calcium 9.2 Total Bilirubin 0.5 AST 16 ALT 13 Alkaline Phosphatase 46 Troponin I High Sens 4.2 Total Protein 6.8 Albumin 3.9 Globulin 2.9 Albumin/Globulin Ratio 1.3 Lipase 30 - Rads (name of study) CXR Radiology: Final report received (No acute cardiopulmonary process) PD MEDICAL DECISION MAKING - ED course Complexity details: reviewed results, re-evaluated patient, considered differential, d/w patient ED course: 80-year-old male presents to the emergency department for evaluation of acute left-sided chest pain that occurred while walking through [employer]. Patient does have a history of hypertension and is a former oral nicotine user. At the time that he presented to the emergency department he was free of chest pain. His EKG nonischemic and shows an unchanged old right bundle branch block. His high-sensitivity troponin was negative. However this gentleman scores fairly high on the heart pathway of 5. I have discussed this case with hospitalist Dr. Griffin who agrees patient bring patient in under an observation status for further stress testing and evaluation of chest pain likely anginal equivalent. Departure - Departure Disposition: ED Place in Observation Clinical Impression: Chest pain Qualifiers: Chest pain type: unspecified Qualified Code(s): R07.9 - Chest pain, unspecified
--- NOTE | 2020-12-29 14:40 | XRAY Report ---
PROCEDURE: Chest 1 View X-Ray INDICATIONS: Chest Pain TECHNIQUE: One view of the chest was acquired. COMPARISON: Chest radiograph 05/19/2019 FINDINGS: Surgical changes and devices: None. Lungs and pleura: No pleural effusions or pneumothorax. Lungs are clear. Mediastinum: Mediastinal contours appear normal. Heart size is normal. Bones and chest wall: No suspicious bony lesions. Overlying soft tissues appear unremarkable. IMPRESSION: No acute cardiopulmonary abnormality. Reviewed by: Ck Gilbert MD on 12/29/2020 2:38 PM PST Approved by: Ck Gilbert MD on 12/29/2020 2:38 PM PST Station ID: [id number]
[2020-12-29 14:48] LABS: BASOPHILS # (AUTO) 0.1 10^3/uL (0.0-0.1); BASOPHILS % (AUTO) 1.2 %; EOSINOPHILS # (AUTO) 0.2 10^3/uL (0.0-0.7); EOSINOPHILS % (AUTO) 3.5 %; HCT - HEMATOCRIT 35.3 % (42.0-52.0); HGB - HEMOGLOBIN 11.8 g/dL (14.0-18.0); LYMPHOCYTES # (AUTO) 2.9 10^3/uL (1.5-3.5); LYMPHOCYTES % (AUTO) 42.7 %; MEAN CORPUSCULAR HEMOGLOBIN 31.6 pg (27.0-31.0); MEAN CORPUSCULAR HGB CONC 33.4 g/dL (32.0-36.0); MEAN CORPUSCULAR VOLUME 94.4 fL (80.0-94.0); MEAN PLATELET VOLUME 9.7 fL (7.4-11.4); MONOCYTES # (AUTO) 0.7 10^3/uL (0.0-1.0); MONOCYTES % (AUTO) 10.6 %; NEUTROPHILS # (AUTO) 2.8 10^3/uL (1.5-6.6); NEUTROPHILS % (AUTO) 41.7 %; PLT - PLATELET COUNT 276 10^3/uL (130-450); RED BLOOD COUNT 3.74 10^6/uL (4.70-6.10); RED CELL DISTRIBUTION WIDTH 12.9 % (12.0-15.0); WHITE BLOOD COUNT 6.8 x10^3/uL (4.8-10.8)
[2020-12-29 15:05] LABS: ALBUMIN 3.9 g/dL (3.2-5.5); ALBUMIN/GLOBULIN RATIO 1.3 (1.0-2.2); BILIRUBIN,TOTAL 0.5 mg/dL (0.2-1.0); CALCIUM 9.2 mg/dL (8.5-10.3); CREATININE 0.8 mg/dL (0.6-1.2); TOTAL PROTEIN 6.8 g/dL (6.7-8.2)
[2020-12-29] MEDS ORDERED: ASPIRIN 325 MG TABLET PO STA (15:43)
[2020-12-29] MEDS ORDERED: ACETAMINOPHEN 325 MG TABLET PO PRN (15:45)
[2020-12-29] MEDS ORDERED: SODIUM CHLORIDE FLUSH 0.9% 10 ML SYRINGE IVP PRN (15:45)
[2020-12-29] MEDS ORDERED: ONDANSETRON 4 MG/2 ML VIAL IVP PRN (15:45)
[2020-12-29] MEDS ORDERED: MORPHINE 2 MG/ML CARPUJECT IVP PRN (15:45)
--- NOTE | 2020-12-29 15:54 | HISTORY & PHYSICAL EXAMINATION ---
Chief Complaint - Chief Complaint Chief Complaint: chest pain History of Present Illness - Admitted From Admitted From:: ER - History Obtained From Records Reviewed: [facility] History obtained from: pt Exam Limitations: no - History of Present Illness HPI Comment/Other: 80-year-old male With a past medical history significant for hypertension, BPH, GERD who presents the emergency department for evaluation of acute onset left- sided chest pain. Pt. brought in by EMS. He reports that at approximately 1230 noon when he was walking at [employer], he felt pressure pain on his left chest that radiated to his left arm. He also feel some numbness in his left arm but he has no weakness. He denies any other unilateral or bilateral weakness or paresthesia as well. The Pain was 5 out of 10 then pain has gone down to 3 out of 10. He denies any previous history of myocardial infarction. He also denies nausea, vomiting or associated shortness of breath. pt does have a history of hypertension, he is Non-smoker. Initially troponin is negative. EKG shows nonischemic change with hx of right bundle branch unchanged since from 2019. Routine laboratory test was unremarkable. Chest x-ray was unremarkable as well. In ER, he is afebrile, patient is hemodynamic stable. Discussed the care goal with the patient, patient request full code but he does not want to have life support. History - Past Medical History Cardiovascular: reports: Hypertension Respiratory: reports: None Endocrine/Autoimmune: reports: None GI: reports: GERD : reports: None HEENT: reports: None Psych: reports: None Musculoskeletal: reports: None Derm: reports: None MRSA Hx?: No - Past Surgical History General: reports: Colonoscopy, EGD Ortho: reports: Knee replacement HEENT: reports: Cataracts - Family & Social History Family History: Mother: , Father: Family History Comment/Other: Patient reported his father at the age of 60 due to cardiac issue. His mother at age 62 because of alcohol problem. He was rised by his uncle. Social History Notes: Patient denies history of Cigarette smoking, Alcohol and drug issue. he Is live at [place] with his partner, he had 2 children. Meds/Allgy - Home Medications Home Medications: Ambulatory Orders Medication Instructions Recorded Confirmed Omeprazole 20 mg PO BID 11/19/15 03/11/18 lisinopriL [Lisinopril] 10 mg PO DAILY 11/19/15 03/11/18 Aspirin [Aspirin EC] 81 mg PO DAILY 12/07/16 03/11/18 Escitalopram [Lexapro] 10 mg PO DAILY 12/07/16 03/11/18 Multivitamin [Multivitamins] 1 each PO DAILY 12/07/16 03/11/18 Tamsulosin [Flomax] 0.4 mg PO QDDINNER 12/07/16 03/11/18 Acetaminophen [Tylenol] 650 mg PO Q4HR PRN #0 tablet 12/08/16 Cholecalciferol (Vitamin D3) 5,000 unit PO DAILY #30 capsule 12/08/16 03/11/18 [Vitamin D3] Finasteride [Proscar] 5 mg PO DAILY tablet 12/08/16 03/11/18 [place]-3 Fatty Acids/Fish Oil 1 each PO DAILYWM #90 capsule 12/08/16 03/11/18 [[place]-3 Fish Oil 1,000 mg Sfgl] Pantoprazole [Protonix] 40 mg PO QDAC #30 tablet 12/08/16 03/11/18 Ubidecarenone/Vitamin E Mixed 1 each PO DAILY #30 capsule 12/08/16 03/11/18 [[id number]-Iat E 200 mg-20 Unit Sfg] - Allergies Allergies/Adverse Reactions: Allergies Allergy/AdvReac Type Severity Reaction Status Date / Time No Known Drug Allergies Allergy Verified 12/29/20 14:23 Review of Systems - Constitutional Constitutional: denies: Fatigue, Fever, Chills, Weakness, Diaphoresis - Eyes Eyes: denies: Pain, Blurred vision, Field loss, Vision loss - Ears, Nose & Throat Ears, Nose & Throat: denies: Ear pain, Vertigo, Nosebleeds, Bleeding gums - Cardiovascular Cariovascular: reports: Chest pain. denies: Irregular heart rate, Palpitations, Edema, Lightheadedness, Syncope, Exertional dyspnea, Decr. exercise tolerance - Respiratory Respiratory: denies: Cough, Wheezing, Snoring, Hemoptysis, Orthopnea, SOB at rest, SOB with exertion - Gastrointestinal Gastrointestinal: denies: Abdominal pain, Constipation, Diarrhea, Rectal bleeding, Black stools, Bloody stools, Nausea, Vomiting - Genitourinary Genitourinary: denies: Dysuria, Urgency, Incontinence - Musculoskeletal Musculoskeletal: denies: Muscle pain, Muscle aches, Limited range of motion - Integumentary Integumentary: denies: Rash, Lesions, Lumps - Neurological Neurological: denies: General weakness, Focal weakness, Headache, Dizziness, Numbness, Memory problems, Pre-existing deficit, Abnormal gait, Seizures, Incoordination, Slurred speech - Psychiatric Psychiatric: denies: Depression, Suicidal, Delusions - Endocrine Endocrine: denies: Polyuria, Polydypsia - Hematologic/Lymphatic Hematologic/Lymphatic: denies: Bruising, Petechiae, Blood clots Prior Level of Functionality: Patient is independently at home Exam - Vital Signs Vital Signs: Vital Signs x48h Temp Pulse Resp BP Pulse Ox 12/29/20 14:29 36.5 C 68 16 124/83 H 97 12/29/20 14:23 36.5 C 68 16 124/83 H 97 - Physical Exam General Appearance: positive: No acute distress, Alert. negative: Lethargic Eyes Bilateral: positive: Normal inspection, PERRL, No lid inflammation ENT: positive: ENT inspection nml, No signs of dehydration. negative: Purulent nasal drainage Neck: positive: Nml inspection, Trachea midline. negative: Thyromegaly, Tracheal deviation Respiratory: positive: Chest non-tender, No respiratory distress, Breath sounds nml. negative: Wheezes, Rales Cardiovascular: positive: Regular rate & rhythm, No murmur. negative: Tachycardia, Bradycardia, Systolic murmur, Diastolic murmur Peripheral Pulses: positive: 2+ Abdomen: positive: Non-tender, Nml bowel sounds, No distention. negative: Tenderness, Guarding, Rebound Back: positive: Nml inspection. negative: CVA tenderness (R), CVA tenderness (L) Skin: positive: Color nml, Warm, Dry. negative: Cyanosis, Diaphoresis, Pallor Extremities: positive: Non-tender, Full ROM, Nml appearance. negative: Calf tenderness Neurologic/Psychiatric: positive: Oriented x3, Motor nml, Sensation nml, Mood/affect nml. negative: Weakness, Sensory loss, Facial droop, Slurred/abnml speech, Depressed mood/affect Conclusion/Plan - Problem List (1) Chest pain Conclusion/Plan: Patient complaint chest pain, patient has a history of hypertension but non- smoke. Initially troponin and EKG was unremarkable. We will continue troponin serial test, order aspirin, Continue telemetry, Morphine for chest pain as needed, lipid test. Because tomorrow we do not have NM, instead we will do stress ECHO test, Continue vital signs and Laboratory test monitor Qualifiers: Chest pain type: unspecified Qualified Code(s): R07.9 - Chest pain, unspecified (2) HTN (hypertension) Conclusion/Plan: Patient blood pressure is stable now, we will resume patient home blood pressure medicine as confirmed (3) BPH (benign prostatic hyperplasia) Conclusion/Plan: History of BPH, we will resume Flomax (4) GERD (gastroesophageal reflux disease) Conclusion/Plan: We will add Pepcid for pt - Lab Results Fish Bones: 12/29/20 14:43 12/29/20 14:43 Core Measures - Anticipated LOS I expect patient to be DC'd or transferred within 96 hours.: Yes - DVT/VTE - Prophylaxis VTE/DVT Device ordered at admit?: Yes VTE/DVT Prophylaxis med ordered at admit?: Yes
[2020-12-29 17:29] LABS: B. PARAPERTUSSIS- RESP PCR PAN NOT DETECTED; B. PERTUSSIS- RESP PCR PANEL NOT DETECTED; C. PNEUMONIAE- RESP PCR PANEL NOT DETECTED; CORONAVIRUS 229E-RESP PCR NOT DETECTED; CORONAVIRUS HKU1-RESP PCR NOT DETECTED; CORONAVIRUS NL63-RESP PCR NOT DETECTED; CORONAVIRUS OC43-RESP PCR NOT DETECTED; HUMAN METAPNEUMOVIRUS NOT DETECTED; INFLUENZA A- RESP PCR PANEL NOT DETECTED; INFLUENZA B - RESP PCR PANEL NOT DETECTED; M. PNEUMONIAE- RESP PCR PANEL NOT DETECTED; PARAINFLUENZA VIRUS 1 NOT DETECTED; PARAINFLUENZA VIRUS 2 NOT DETECTED; PARAINFLUENZA VIRUS 3 NOT DETECTED; PARAINFLUENZA VIRUS 4 NOT DETECTED; RHINOVIRUS/ENTEROVIRUS NOT DETECTED; RSV- RESP PCR PANEL NOT DETECTED; SARS-CoV-2 -RESP PCR PANEL NOT DETECTED
[2020-12-29] MEDS: SODIUM CHLORIDE FLUSH 0.9% 10 ML SYRINGE IVP SCH (17:35)
[2020-12-29] MEDS: FAMOTIDINE 20 MG TABLET PO SCH (20:55)
[2020-12-30] MEDS ORDERED: SODIUM CHLORIDE 0.9% 1,000 ML IV SCH (01:00)
[2020-12-30] MEDS: SODIUM CHLORIDE FLUSH 0.9% 10 ML SYRINGE IVP SCH ×2 (01:01→08:08)
[2020-12-30 04:46] LABS: BASOPHILS # (AUTO) 0.1 10^3/uL (0.0-0.1); BASOPHILS % (AUTO) 1.4 %; EOSINOPHILS # (AUTO) 0.3 10^3/uL (0.0-0.7); EOSINOPHILS % (AUTO) 5.1 %; HCT - HEMATOCRIT 34.4 % (42.0-52.0); HGB - HEMOGLOBIN 11.3 g/dL (14.0-18.0); LYMPHOCYTES # (AUTO) 2.3 10^3/uL (1.5-3.5); LYMPHOCYTES % (AUTO) 39.5 %; MEAN CORPUSCULAR HEMOGLOBIN 31.2 pg (27.0-31.0); MEAN CORPUSCULAR HGB CONC 32.8 g/dL (32.0-36.0); MEAN PLATELET VOLUME 10.2 fL (7.4-11.4); MONOCYTES # (AUTO) 0.7 10^3/uL (0.0-1.0); MONOCYTES % (AUTO) 11.3 %; NEUTROPHILS # (AUTO) 2.4 10^3/uL (1.5-6.6); NEUTROPHILS % (AUTO) 42.4 %; PLT - PLATELET COUNT 269 10^3/uL (130-450); RED BLOOD COUNT 3.62 10^6/uL (4.70-6.10); RED CELL DISTRIBUTION WIDTH 12.8 % (12.0-15.0); WHITE BLOOD COUNT 5.7 x10^3/uL (4.8-10.8)
[2020-12-30 04:50] LABS: CALCIUM 8.6 mg/dL (8.5-10.3); CREATININE 1.1 mg/dL (0.6-1.2)
[2020-12-30 05:04] LABS: CHOL/HDL RATIO 2.9 (<5.0); CHOLESTEROL 158 mg/dL; HDL CHOLESTEROL 55 mg/dL; LDL CHOLESTEROL,CALCULATED 88 mg/dL; LDL/HDL RATIO 1.6 (<3.6); TRIGLYCERIDES 73 mg/dL; VLDL CHOLESTEROL 15 mg/dL
[2020-12-30] MEDS: FAMOTIDINE 20 MG TABLET PO SCH (08:07)
[2020-12-30] MEDS ORDERED: ENOXAPARIN 40 MG/0.4 ML SYRINGE SUBQ SCH (09:00)
[2020-12-30] MEDS ORDERED: ASPIRIN CHEW 81 MG TABLET PO SCH (09:00)
[2020-12-30] MEDS ORDERED: TAMSULOSIN 0.4 MG CAPSULE PO SCH (09:00)
--- NOTE | 2020-12-30 11:08 | PHARMACY PROGRESS NOTE ---
- Best Possible Medication History Admit Date and Time: 12/29/20 1545 Processed by: Pharmacy Medication History completed: Yes Patient Interview: Completed Secondary Source(s): Physician records, Pharmacy records, Insurance records (PATIENT INTERVIEWED BY RESISTANCE BRAZER. PATIENT ABLE TO CONFIRM HOME MEDICATIONS ) As the person ultimately responsible for medication therapy, providers are able to order a medication from an existing home medication list in [facility] via the "Reconcile Routine" prior to Confirmation of that medication by field support specialist. Such practice is discouraged except when the physician, in their clinical judgment, deems that a medical need exists for a medication without regard to previous use.
[2020-12-30 12:22] VITALS: BP 130/84
--- NOTE | 2020-12-30 14:20 | Discharge Plan ---
Discharge Plan Problem Reviewed?: Yes Disposition: Home, Self Care Condition: Stable Diet: Regular Activity Restrictions: Activity as Tolerated Shower Restrictions: No (fall precaution) Instruction Topics: ED Chest Pain Atypical Unkn Cause Health Concerns: chest pain Plan of Treatment: Your chest pain is reproducible and localized. Your studies including serial troponin, EKG, and ECHO are all negative for heart attack, unfortunately we could not do stress test for you in hospital on today. You may followup with your PCP as out-pt to have stress test. You may resume your home medications Care Goals: stabilization and improvement of your medical conditions Assessment: discussed the test results and care plan with you, you understood. Additional Instructions or Follow Up instructions: you may followup with your PCP in one to two weeks, may have stress test as out- pt. Should your symptoms return or worsen, you may present ER or call 911 for help. No Smoking: If you smoke, Please STOP! Call for help. Follow-up with: Reuben Grimes MD [Primary Care Provider] -
--- NOTE | 2020-12-30 14:32 | DISCHARGE SUMMARY ---
Discharge Summary Admit Date: 12/29/20 Discharge Date: 12/30/20 Discharging Provider: Hilton Carlos Primary Care Provider: Dr.Dan Grimes Condition at Discharge: Stable Discharge Disposition: 01 Home, Self Care Discharge Facility Name: home - DIAGNOSES Discharge Diagnoses with Status of Each Condition: (1) Chest pain Pt's chest pain is reproducible and localized at the shoulder area, and the pain is significantly reduced. It is more likely muscle spasm. pt has no distress. pt is Hemodynamically stable. Your studies including serial troponin, EKG, and ECHO are all negative for acute PR. Unfortunately we could not do stress test for pt in hospital on today and explained the reason for pt, pt understood, and he may followup with his PCP as out-pt to have stress test. (2) HTN (hypertension) stable (3) BPH (benign prostatic hyperplasia) stable (4) GERD (gastroesophageal reflux disease) stable - HPI History of Present Illness: 80-year-old male With a past medical history significant for hypertension, BPH, GERD who presents the emergency department for evaluation of acute onset left- sided chest pain. Pt. brought in by EMS. He reports that at approximately 1230 noon when he was walking at [employer], he felt pressure pain on his left chest that radiated to his left arm. He also feel some numbness in his left arm but he has no weakness. He denies any other unilateral or bilateral weakness or paresthesia as well. The Pain was 5 out of 10 then pain has gone down to 3 out of 10. He denies any previous history of myocardial infarction. He also denies nausea, vomiting or associated shortness of breath. pt does have a history of hypertension, he is Non-smoker. Initially troponin is negative. EKG shows nonischemic change with hx of right bundle branch unchanged since from 2019. Routine laboratory test was unremarkable. Chest x-ray was unremarkable as well. In ER, he is afebrile, patient is hemodynamic stable. Discussed the care goal with the patient, patient request full code but he does not want to have life support. - HOSPITAL COURSE Hospital Course: Patient was admitted for left arm numbness, and left shoulder and chest pain. Patient's chest pain was reproducible and localized at left shoulder area. Patient's troponin test, EKG, echo study all are negative for acute myocardial ischemia. Unfortunately we cannot do stress test in the hospital today. explain to the patient and patient may follow-up with his PCP to have stress test as outpatient. Patient verbally understand and will follow up with his PCP to have stress test as out-pt. Patient Is comfortable, no distress, patient chest pain is resolved. Patient is discharged as hemodynamic condition. - ALLERGIES Allergies/Adverse Reactions: Allergies Allergy/AdvReac Type Severity Reaction Status Date / Time No Known Drug Allergies Allergy Verified 12/29/20 14:23 - MEDICATIONS Home Medications: Ambulatory Orders Medication Instructions Recorded Confirmed Omeprazole 20 mg PO DAILY 11/19/15 12/30/20 lisinopriL [Lisinopril] 10 mg PO DAILY 11/19/15 12/30/20 Aspirin [Aspirin EC] 81 mg PO DAILY 12/07/16 12/30/20 Escitalopram [Lexapro] 10 mg PO DAILY 12/07/16 12/30/20 Multivitamin [Multivitamins] 1 each PO DAILY 12/07/16 12/30/20 Tamsulosin [Flomax] 0.4 mg PO QDDINNER 12/07/16 12/30/20 Acetaminophen [Tylenol] 650 mg PO Q4HR PRN #0 tablet 12/08/16 12/30/20 Cholecalciferol (Vitamin D3) 5,000 unit PO DAILY #30 capsule 12/08/16 12/30/20 [Vitamin D3] Finasteride [Proscar] 5 mg PO DAILY tablet 12/08/16 12/30/20 Pantoprazole [Protonix] 40 mg PO QDAC #30 tablet 12/08/16 12/30/20 - PHYSICAL EXAM AT DISCHARGE General Appearance: positive: No acute distress, Alert. negative: Lethargic Eyes Bilateral: positive: Normal inspection, PERRL, No lid inflammation ENT: positive: ENT inspection nml, No signs of dehydration. negative: Purulent nasal drainage Neck: positive: Nml inspection, Trachea midline. negative: Thyromegaly, Tracheal deviation Respiratory: positive: Chest non-tender, No respiratory distress, Breath sounds nml. negative: Wheezes, Rales, Rhonchi Cardiovascular: positive: Regular rate & rhythm, No murmur. negative: Tachycardia, Bradycardia, Systolic murmur, Diastolic murmur Peripheral Pulses: positive: 2+ Abdomen: positive: Non-tender, Nml bowel sounds, No distention. negative: Tenderness, Guarding, Rebound Back: positive: Nml inspection. negative: CVA tenderness (R), CVA tenderness (L) Skin: positive: Color nml, Warm, Dry. negative: Cyanosis, Diaphoresis, Pallor Extremities: positive: Non-tender, Full ROM, Nml appearance. negative: Calf tenderness Neurologic/Psychiatric: positive: Oriented x3, Motor nml, Sensation nml, Mood/affect nml. negative: Weakness, Sensory loss, Facial droop, Slurred/abnml speech, Depressed mood/affect - LABS Result Diagrams: 12/30/20 04:05 12/30/20 04:05 - FOLLOW UP Follow Up: Your chest pain is reproducible and localized. Your studies including serial troponin, EKG, and ECHO are all negative for heart attack, unfortunately we could not do stress test for you in hospital on today. You may followup with your PCP as out-pt to have stress test. You may resume your home medications you may followup with your PCP in one to two weeks, may have stress test as out- pt. Should your symptoms return or worsen, you may present ER or call 911 for help. - TIME SPENT Time Spent in Discharge (Minutes): 30
== END 2020-12-30 14:48 | disposition home or self-care (01) ==
LOC: EDUNIT# → ED 14:10 → MS2 15:45
PROVIDERS: ADMIT Nurse Practitioner Gerontology; ATTEND Nurse Practitioner Gerontology
DX: R07.9 Chest pain, unspecified (principal); I10 Essential (primary) hypertension; N40.0 Benign prostatic hyperplasia without lower urinary tract symptoms; K21.9 Gastro-esophageal reflux disease without esophagitis; Z79.899 Other long term (current) drug therapy; Z79.82 Long term (current) use of aspirin; Z20.822 Contact with and (suspected) exposure to COVID-19
CPT/HCPCS: 36415; 71045; 80048; 80053; 80061; 83690; 84484; 85025; 87631; 93005; 93306; 96372; 99284; 99285; A9270; G0378; J1650; 0202U; 83721

== ENCOUNTER 2021-03-01 08:17 | Outpatient (CLI) | payer MEDICARE, OTHER ==
[2021-03-01 11:43] LABS: BASOPHILS # (AUTO) 0.1 10^3/uL (0.0-0.1); EOSINOPHILS # (AUTO) 0.3 10^3/uL (0.0-0.7); EOSINOPHILS % (AUTO) 4.1 %; HCT - HEMATOCRIT 41.4 % (42.0-52.0); HGB - HEMOGLOBIN 13.5 g/dL (14.0-18.0); LYMPHOCYTES # (AUTO) 2.7 10^3/uL (1.5-3.5); LYMPHOCYTES % (AUTO) 42.3 %; MEAN CORPUSCULAR HEMOGLOBIN 30.8 pg (27.0-31.0); MEAN CORPUSCULAR HGB CONC 32.6 g/dL (32.0-36.0); MEAN CORPUSCULAR VOLUME 94.5 fL (80.0-94.0); MEAN PLATELET VOLUME 10.3 fL (7.4-11.4); MONOCYTES # (AUTO) 0.7 10^3/uL (0.0-1.0); MONOCYTES % (AUTO) 10.8 %; NEUTROPHILS # (AUTO) 2.6 10^3/uL (1.5-6.6); NEUTROPHILS % (AUTO) 41.5 %; PLT - PLATELET COUNT 346 10^3/uL (130-450); RED BLOOD COUNT 4.38 10^6/uL (4.70-6.10); RED CELL DISTRIBUTION WIDTH 13.4 % (12.0-15.0); WHITE BLOOD COUNT 6.3 x10^3/uL (4.8-10.8)
[2021-03-01 11:57] LABS: ALBUMIN 4.4 g/dL (3.2-5.5); ALBUMIN/GLOBULIN RATIO 1.4 (1.0-2.2); ALKALINE PHOSPHATASE 51 IU/L (42-121); ALT ALANINE AMINOTRANSFERASE 15 IU/L (10-60); AST ASPARTATE AMINOTRANSFERASE 19 IU/L (10-42); BILIRUBIN,TOTAL 1.1 mg/dL (0.2-1.0); BUN - BLOOD UREA NITROGEN 15 mg/dL (6-20); CALCIUM 9.8 mg/dL (8.5-10.3); CARBON DIOXIDE - CO2 26 mmol/L (21-32); CHLORIDE 98 mmol/L (101-111); CHOL/HDL RATIO 2.4 (<5.0); CHOLESTEROL 203 mg/dL; CREATININE 0.9 mg/dL (0.6-1.2); GFR - MDRD 82 (>89); GLUCOSE 99 mg/dL (70-100); HDL CHOLESTEROL 84 mg/dL; LDL CHOLESTEROL,CALCULATED 101 mg/dL; LDL/HDL RATIO 1.2 (<3.6); SODIUM 136 mmol/L (135-145); TOTAL PROTEIN 7.6 g/dL (6.7-8.2); TRIGLYCERIDES 88 mg/dL; VLDL CHOLESTEROL 18 mg/dL
[2021-03-01 12:05] LABS: THYROID STIMULATING HORMONE 1.79 uIU/mL (0.34-5.60)
== END 2021-03-01 23:59 | disposition home or self-care (01) ==
LOC: LAB.WCP 08:17
PROVIDERS: ATTEND Internal Medicine
DX: I10 Essential (primary) hypertension (principal); E55.9 Vitamin D deficiency, unspecified; N40.0 Benign prostatic hyperplasia without lower urinary tract symptoms; R41.3 Other amnesia
CPT/HCPCS: 36415; 80053; 80061; 82306; 83721; 84153; 84443; 85025

== ENCOUNTER 2021-06-06 08:45 | Outpatient (CLI) | payer MEDICARE, OTHER ==
[2021-06-06 11:32] LABS: BUN - BLOOD UREA NITROGEN 18 mg/dL (6-20); CALCIUM 9.1 mg/dL (8.5-10.3); CARBON DIOXIDE - CO2 27 mmol/L (21-32); CHLORIDE 98 mmol/L (101-111); CHOL/HDL RATIO 2.7 (<5.0); CHOLESTEROL 201 mg/dL; GFR - MDRD 72 (>89); GLUCOSE 101 mg/dL (70-100); HDL CHOLESTEROL 74 mg/dL; LDL CHOLESTEROL,CALCULATED 111 mg/dL; LDL/HDL RATIO 1.5 (<3.6); POTASSIUM 4.2 mmol/L (3.5-5.0); SODIUM 132 mmol/L (135-145); TRIGLYCERIDES 78 mg/dL; VLDL CHOLESTEROL 16 mg/dL
== END 2021-06-06 08:46 | disposition home or self-care (01) ==
LOC: LAB.N 08:45
PROVIDERS: ATTEND Internal Medicine
DX: I10 Essential (primary) hypertension (principal); E53.8 Deficiency of other specified B group vitamins
CPT/HCPCS: 36415; 80048; 80061; 82607; 83721

== ENCOUNTER 2021-08-22 13:06 | Outpatient (CLI) | payer MEDICARE, OTHER | END 2021-08-22 13:07 | disposition home or self-care (01) | LOC: COV 13:06 | PROVIDERS: ATTEND Physician Assistant | DX: Z01.812 Encounter for preprocedural laboratory examination (principal); Z20.822 Contact with and (suspected) exposure to COVID-19 ==

== ENCOUNTER 2021-11-06 08:00 | Outpatient (CLI) | payer MEDICARE, OTHER | END 2021-11-06 23:59 | LOC: LAB.N 08:00 | PROVIDERS: ATTEND Family Medicine | DX: R05.8 Other specified cough (principal); Z20.822 Contact with and (suspected) exposure to COVID-19 | CPT/HCPCS: 87275; 87276; U0004 ==

== ENCOUNTER 2021-11-06 13:02 | Outpatient (CLI) | payer MEDICARE, OTHER ==
--- NOTE | 2021-11-06 22:36 | XRAY Report ---
PROCEDURE: Chest 2 View X-Ray INDICATIONS: COUGH TECHNIQUE: 2 views of the chest. COMPARISON: 12/29/2020. FINDINGS: Surgical changes and devices: None. Lungs and pleura: No pleural effusions or pneumothorax. Lungs are clear. There is hyperinflation of the lungs with mild flattening of hemidiaphragms suggestive of COPD. Mediastinum: Mediastinal contours are normal. Heart size is normal. Bones and chest wall: No suspicious bony abnormalities. Soft tissues appear unremarkable. IMPRESSION: 1. No acute cardiopulmonary disease. Reviewed by: Ilir Orozco MD on 11/06/2021 10:34 PM [facility] Approved by: Ilir Orozco MD on 11/06/2021 10:34 PM [facility] Station ID: [id number]
== END 2021-11-06 13:03 | disposition home or self-care (01) ==
LOC: DI.N 13:02
PROVIDERS: ATTEND Family Medicine
DX: R05.8 Other specified cough (principal)

== ENCOUNTER 2022-01-01 12:09 | Outpatient (CLI) | payer MEDICARE, OTHER | END 2022-01-01 23:59 | disposition home or self-care (01) | LOC: LAB.N 12:09 | PROVIDERS: ATTEND Physician Assistant | DX: R05.8 Other specified cough (principal); Z20.822 Contact with and (suspected) exposure to COVID-19 ==

== ENCOUNTER 2022-01-13 08:08 | Outpatient (CLI) | payer MEDICARE, OTHER ==
[2022-01-13 12:04] LABS: BASOPHILS % (AUTO) 0.7 %; EOSINOPHILS % (AUTO) 1.9 %; HCT - HEMATOCRIT 39.5 % (42.0-52.0); HGB - HEMOGLOBIN 13.2 g/dL (14.0-18.0); MEAN CORPUSCULAR HGB CONC 33.4 g/dL (32.0-36.0); MEAN CORPUSCULAR VOLUME 92.7 fL (80.0-94.0); MEAN PLATELET VOLUME 10.3 fL (7.4-11.4); MONOCYTES % (AUTO) 8.8 %; NEUTROPHILS % (AUTO) 37.1 %; PLT - PLATELET COUNT 368 10^3/uL (130-450); RED BLOOD COUNT 4.26 10^6/uL (4.70-6.10); RED CELL DISTRIBUTION WIDTH 13.3 % (12.0-15.0); WHITE BLOOD COUNT 10.5 x10^3/uL (4.8-10.8)
[2022-01-13 12:23] LABS: ALBUMIN 4.2 g/dL (3.2-5.5); ALBUMIN/GLOBULIN RATIO 1.4 (1.0-2.2); ALKALINE PHOSPHATASE 42 IU/L (42-121); ALT ALANINE AMINOTRANSFERASE 16 IU/L (10-60); AST ASPARTATE AMINOTRANSFERASE 19 IU/L (10-42); BILIRUBIN,TOTAL 0.8 mg/dL (0.2-1.0); BUN - BLOOD UREA NITROGEN 16 mg/dL (6-20); CALCIUM 9.4 mg/dL (8.5-10.3); CARBON DIOXIDE - CO2 30 mmol/L (21-32); CHLORIDE 95 mmol/L (101-111); CHOL/HDL RATIO 2.1 (<5.0); CHOLESTEROL 197 mg/dL; GFR - MDRD 72 (>89); GLUCOSE 94 mg/dL (70-100); HDL CHOLESTEROL 95 mg/dL; LDL CHOLESTEROL,CALCULATED 91 mg/dL; POTASSIUM 4.4 mmol/L (3.5-5.0); SODIUM 132 mmol/L (135-145); TOTAL PROTEIN 7.3 g/dL (6.7-8.2); TRIGLYCERIDES 57 mg/dL; VLDL CHOLESTEROL 11 mg/dL
[2022-01-13 12:28] LABS: SLIDE REVIEW? Indicated
[2022-01-13 12:29] LABS: BAND NEUTROPHILS % (MANUAL) 0 %
[2022-01-13 12:34] LABS: ABNORMAL LYMPHS % (MANUAL) 2 %; BASOPHILS # (MANUAL) 0.1 10^3/uL (0-0.1); BASOPHILS % (MANUAL) 1 %; LYMPHOCYTES % (MANUAL) 45 %; MONOCYTES # (MANUAL) 0.6 10^3/uL (0.0-1.0); NEUTROPHILS # (MANUAL) 3.8 10^3/uL (1.5-6.6); REACTIVE LYMPHS % (MANUAL) 10 %
[2022-01-13 12:37] LABS: PLATELET ESTIMATE, MANUAL NORMAL (130-450,000) (NORMAL); PLATELET MORPHOLOGY NORMAL APPEARANCE (NORMAL); RBC MORPHOLOGY (MULTIPLE) NORMAL APPEARANCE (NORMAL); SLIDE SENT FOR PATH REVIEW? Indicated; WBC MORPHOLOGY (MULTIPLE) 1+ REACTIVE LYMPHS (NORMAL)
== END 2022-01-13 08:09 | disposition home or self-care (01) ==
LOC: LAB.N 08:08
PROVIDERS: ATTEND Internal Medicine
DX: I10 Essential (primary) hypertension (principal); E55.9 Vitamin D deficiency, unspecified; E53.8 Deficiency of other specified B group vitamins; R97.20 Elevated prostate specific antigen [PSA]
CPT/HCPCS: 36415; 80053; 80061; 82306; 82607; 83721; 84153; 85025

== ENCOUNTER 2022-02-12 09:28 | Outpatient (CLI) | payer MEDICARE, OTHER ==
[2022-02-12] MEDS ORDERED: ALBUTEROL 1 PUFF INH STA (12:20)
== END 2022-02-12 09:29 | disposition home or self-care (01) ==
LOC: RT 09:28
PROVIDERS: ATTEND Internal Medicine
DX: R05.8 Other specified cough (principal); Z87.891 Personal history of nicotine dependence
CPT/HCPCS: 94060; 94729

== ENCOUNTER 2022-05-01 06:55 | Outpatient (CLI) | payer MEDICARE, OTHER ==
--- NOTE | 2022-05-01 10:47 | Ultrasound Report ---
PROCEDURE: Aorta Screening INDICATIONS: HIST OF SMOKING TECHNIQUE: Real time scanning was performed of the aorta and iliac arteries, with image documentatio n. COMPARISON: None FINDINGS: Aorta: Proximal aortic diameter measures 2.8 x 2.9 cm. Mid-aorta measures 2.6 x 2.8 cm. Distal aor tic diameter is 2.3 x 2.3 cm. Iliac arteries: Right common iliac artery measures 1.4 x 1.4 cm. Left common iliac artery measures 1.3 x 1.3 cm. Scattered calcified plaque seen throughout the abdominal aorta and proximal common iliac vessels. IMPRESSION: Abdominal aortic ectasia. Recommend follow-up screening ultrasound in 5 years. Reviewed by: Deepti Campos MD, PhD on 05/01/2022 10:46 AM PDT Approved by: Deepti Campos MD, PhD on 05/01/2022 10:46 AM PDT Station ID: [id number]
== END 2022-05-01 06:56 | disposition home or self-care (01) ==
LOC: DI 06:55
PROVIDERS: ATTEND Internal Medicine
DX: Z13.6 Encounter for screening for cardiovascular disorders (principal); Z87.891 Personal history of nicotine dependence; I77.811 Abdominal aortic ectasia

== ENCOUNTER 2023-07-26 10:31 | Outpatient (CLI) | payer MEDICARE, OTHER ==
[2023-07-26 17:36] LABS: BASOPHILS # (AUTO) 0.1 10^3/uL (0.0-0.1); BASOPHILS % (AUTO) 0.8 %; EOSINOPHILS # (AUTO) 0.2 10^3/uL (0.0-0.7); EOSINOPHILS % (AUTO) 1.9 %; HCT - HEMATOCRIT 39.8 % (42.0-52.0); HGB - HEMOGLOBIN 13.2 g/dL (14.0-18.0); LYMPHOCYTES # (AUTO) 2.7 10^3/uL (1.5-3.5); LYMPHOCYTES % (AUTO) 34.3 %; MEAN CORPUSCULAR HEMOGLOBIN 31.5 pg (27.0-31.0); MEAN CORPUSCULAR HGB CONC 33.2 g/dL (32.0-36.0); MEAN PLATELET VOLUME 10.5 fL (7.4-11.4); MONOCYTES # (AUTO) 0.8 10^3/uL (0.0-1.0); MONOCYTES % (AUTO) 10.4 %; NEUTROPHILS # (AUTO) 4.1 10^3/uL (1.5-6.6); NEUTROPHILS % (AUTO) 52.2 %; PLT - PLATELET COUNT 336 10^3/uL (130-450); RED BLOOD COUNT 4.19 10^6/uL (4.70-6.10); RED CELL DISTRIBUTION WIDTH 13.9 % (12.0-15.0); WHITE BLOOD COUNT 7.9 x10^3/uL (4.8-10.8)
[2023-07-26 17:41] LABS: ALBUMIN 4.4 g/dL (3.2-5.5); ALBUMIN/GLOBULIN RATIO 1.5 (1.0-2.2); BILIRUBIN,TOTAL 0.7 mg/dL (0.2-1.0); CALCIUM 9.8 mg/dL (8.5-10.3); POTASSIUM 4.5 mmol/L (3.5-4.5); TOTAL PROTEIN 7.3 g/dL (6.4-8.9)
[2023-07-26 17:59] LABS: THYROID STIMULATING HORMONE 1.74 uIU/mL (0.34-5.60)
== END 2023-07-26 10:32 | disposition home or self-care (01) ==
LOC: LAB.N 10:31
PROVIDERS: ATTEND Internal Medicine
DX: I10 Essential (primary) hypertension (principal); E55.9 Vitamin D deficiency, unspecified; E53.8 Deficiency of other specified B group vitamins; R97.20 Elevated prostate specific antigen [PSA]; R41.3 Other amnesia; D72.820 Lymphocytosis (symptomatic)
CPT/HCPCS: 36415; 80053; 82306; 82607; 84153; 84443; 85025

== ENCOUNTER 2024-05-19 14:45 | Outpatient (CLI) | payer MEDICARE, OTHER ==
--- NOTE | 2024-05-19 16:35 | XRAY Report ---
PROCEDURE: Ribs w/PA Chest 3+V RT INDICATIONS: HISTORY OF FALLING TECHNIQUE: 3 views of the ribs were acquired, along with a single view chest. COMPARISON: 11/06/2021. FINDINGS: Surgical changes and devices: None. Bones and chest wall: No fractures or dislocations. No suspicious bony lesions. Overlying soft tis sues appear unremarkable. Lungs and pleura: No pleural effusions or pneumothorax. Lungs appear clear. Mediastinum: Mediastinal contours appear normal. Heart size is normal. IMPRESSION: No displaced rib fracture or pneumothorax. Reviewed by: Cesar Medrano MD on 05/19/2024 4:34 PM PDT Approved by: Cesar Medrano MD on 05/19/2024 4:34 PM PDT Station ID: [id number]
--- NOTE | 2024-05-19 16:36 | XRAY Report ---
PROCEDURE: Abdomen 1 V INDICATIONS: HISTORY OF FALLING TECHNIQUE: One view of the abdomen acquired. COMPARISON: None. FINDINGS: Surgical changes and devices: None. Bowel: Bowel gas pattern is normal. Soft tissues: No suspicious abdominal calcifications. Visualized solid organ contours appear normal in size. Bones: No suspicious bony lesions. Degenerative changes the spine with mild dextrocurvature. IMPRESSION: No acute abdominal pathology. Reviewed by: Cesar Medrano MD on 05/19/2024 4:35 PM PDT Approved by: Cesar Medrano MD on 05/19/2024 4:35 PM PDT Station ID: [id number]
== END 2024-05-19 15:00 | disposition home or self-care (01) ==
LOC: DI.N 14:45
PROVIDERS: ATTEND Physician Assistant Medical
DX: R07.81 Pleurodynia (principal); R10.819 Abdominal tenderness, unspecified site